=== PATIENT | female | born 1930 | race Hispanic/Latino ===

== ENCOUNTER 2019-02-19 03:41 | Inpatient (IN) | payer OTHER ==
--- OUTSIDE RECORDS SUMMARY | 2019-02-19 03:42 | XMS REPORT | Clinical Summary ---
:1930 Author Organization [facility] Address [address] [place] [address] Care Team Providers Name Role Phone Alvaro Sullivan MD Primary Care Provider Allergies No Known Allergies Medications Medication Sig Dispensed Refills Start Date End Date Status oseltamivir (TAMIFLU) 75 Take 75 mg by 0 Active MG capsule mouth 2 (two) times daily. azithromycin (ZITHROMAX) Take by mouth 0 Active 250 MG tablet daily. Take by mouth as directed. ALBUTEROL INHL Inhale by mouth 0 Active via inhaler. isosorbide mononitrate Take 30 mg by 0 Active (IMDUR) 30 MG 24 hr mouth daily. tablet ALPRAZolam (XANAX) 0.25 Take 0.25 mg by 0 Active MG tablet mouth every night as needed. rosuvastatin (CRESTOR) Take 10 mg by 0 Active 10 MG tablet mouth daily. irbesartan (AVAPRO) 300 Take 300 mg by 0 Active MG tablet mouth nightly. methocarbamol (ROBAXIN) Take 750 mg by 0 Active 750 MG tablet mouth 4 (four) times daily. nabumetone (RELAFEN) 500 Take 500 mg by 0 Active MG tablet mouth 2 (two) times daily. codeine-guaifenesin Take 5 mLs by 0 Active (GUAIFENESIN AC) 10-100 mouth 3 (three) mg/5 mL liquid times daily as needed. Active Problems Not on file Social History Tobacco Use Types Packs/Day Years Used Date Never Smoker Alcohol Use Drinks/Week oz/Week Comments No Sex Assigned at Date Recorded Not on file Job Start Date Occupation Industry Not on file Not on file Not on file Travel History Travel Start Travel End No recent travel history available. Last Filed Vital Signs Not on file Plan of Treatment Not on file Results Not on fileafter 02/18/2018 Insurance Payer Benefit Plan / Group Subscriber ID Type Phone Address MEDICARE MEDICARE A B xxxxxxxxxx Medicare MEDICAID MEDICAID [facility] xxxxxxxxx Medicaid
--- OUTSIDE RECORDS SUMMARY | 2019-02-19 03:42 | XMS REPORT | Clinical Summary ---
:1930 Author Organization [facility] Address [address] [place] [address] Care Team Providers Name Role Phone Asked, No Pcp Primary Care Provider Unavailable Allergies No Known Allergies Medications Medication Sig Dispensed Refills Start Date End Date Status ALBUTEROL SULFATE INHL Inhale. 0 Active ALPRAZolam (XANAX) Take 0.25 mg by 0 Active 0.25 MG tablet mouth. ondansetron ODT Take 1 tablet (4 15 tablet 0 12/31/2015 Active (ZOFRAN ODT) 4 MG mg total) by mouth disintegrating tablet every 8 (eight) hours as needed for nausea or vomiting for up to 15 doses. gabapentin (NEURONTIN) Take 300 mg by 0 Active 300 mg capsule mouth 3 (three) times a day. methocarbamol Take 750 mg by 0 Active (ROBAXIN) 750 MG mouth 2 (two) tablet times a day as needed for muscle spasms. amLODIPine (NORVASC) 5 Take 5 mg by mouth 0 Active mg tablet daily. aspirin (ECOTRIN) 81 Take 81 mg by 0 Active MG enteric coated mouth daily. tablet traMADol (ULTRAM) 50 Take 50 mg by 0 Active mg tablet mouth daily as needed for moderate pain. clopidogrel (PLAVIX) Take 75 mg by 0 Active 75 mg tablet mouth daily. pantoprazole Take 40 mg by 0 Active (PROTONIX) 40 MG EC mouth daily. tablet fluticasone-vilanterol Inhale 1 0 Active (BREO ELLIPTA) 100-25 inhalations once mcg/dose blister with daily. device powder for inhalation linaclotide (LINZESS) Take 290 mcg by 0 Active 290 mcg capsule mouth daily before breakfast. irbesartan (AVAPRO) Take 300 mg by 0 Active 300 MG tablet mouth nightly. isosorbide mononitrate Take 30 mg by 0 Active (IMDUR) 30 MG 24 hr mouth daily. tablet rosuvastatin (CRESTOR) Take 10 mg by 0 Active 10 MG tablet mouth daily. diclofenac (FLECTOR) Place 1 patch on 60 patch 0 08/07/2017 Active 1.3 % patch 12 hour the skin every 12 (twelve) hours as needed (muscular/joint pain). 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 Last Filed Vital Signs Not on file Plan of Treatment Health Maintenance Due Date Last Done Comments SHINGLES VACCINES (#1) 12/01/1981 65+ PNEUMOCOCCAL VACCINE (1 of 2 - PCV13) 12/01/1996 INFLUENZA VACCINE 01/17/2019 Results Not on fileafter 02/18/2018 Insurance Payer Benefit Plan / Subscriber ID Effective Dates Phone Address Type Group MEDICARE MEDICARE PART A xxxxxxxxxx 1996-Present [place], [place] Medicare AND B MEDICAID MEDICAID xxxxxxxxx 2011-Present Medicaid Advance Directives For more information, please contact: [phone] Type Date Recorded Patient Legal Summer Intern Explanation Advance Directives, Living Will 08/06/2017 7:03 AM and Medical Power of [place]ner
--- OUTSIDE RECORDS SUMMARY | 2019-02-19 03:43 | XMS REPORT ---
:1930 Author Organization [facility] Address [address] [place] [address] Dr. Burk [address] [place] [id number] Care Team Providers Name Role Phone IRVING HICKEY Unavailable Unavailable Problems This patient has no known problems. Allergies, Adverse Reactions, Alerts This patient has no known allergies or adverse reactions. Medications This patient has no known medications. Results Test Description Test Time Test Comments Text Results Atomic Results Result Comments POCT-CREATININE 2016-12-16 15:32:00 Test Item Value Reference Range Comments POC-CREATININE (BEAKER) (test 1.0 mg/dL 0.6-1.3 TESTED AT [facility] 2457 [id number]) [facility] [address] POC-EGFR (BEAKER) (test 53 mL/min/1.73M2 [id number])
[2019-02-19] MEDS ORDERED: ALBUTEROL 2.5 MG/3 ML NEB SOL ONE ×2 (03:59→06:06)
[2019-02-19] MEDS ORDERED: IPRATROPIUM BROM 0.5MG/2.5ML ONE ×2 (03:59→06:06)
[2019-02-19] MEDS ORDERED: METHYLPREDNISOLONE 125 MG INJ ONE (04:03)
[2019-02-19 04:19] LABS: Absolute Lymphocytes (CBC) 1.4 K/uL (0.7-4.9); Basophils % 0.6 % (0-1.3); Hematocrit 36.5 % (36.0-45.0); Lymphocytes % 15.4 % (15.3-44.8); MPV 8.3 fL (7.6-11.3); RBC Red Blood Cell Count 4.23 M/uL (3.86-4.86)
[2019-02-19 04:27] LABS: Protime INR 0.89
[2019-02-19 04:33] LABS: Arterial Blood Carboxyhemoglob 0.9 % (0-1.5); Blood Gas Oxyhemoglobin 92.6 % (94-97); Blood O2 Saturation 94.3 % (92-98.5)
[2019-02-19 04:40] LABS: ALT/SGPT 22 U/L (12-78); AST/SGOT 18 U/L (15-37); Albumin 3.9 g/dL (3.4-5.0); Alkaline Phosphatase 90 U/L (45-117); BUN Blood Urea Nitrogen 30 mg/dL (7-18); Bicarbonate 30 mmol/L (21-32); Bilirubin Direct 0.2 mg/dL (0-0.2); Bilirubin Total 0.5 mg/dL (0.2-1.0); Glucose Level 115 mg/dL (74-106); Magnesium 2.2 mg/dL (1.8-2.4); NT PRO-BNP 127 pg/mL (<450); Potassium 3.7 mmol/L (3.5-5.1); Protein, Total 7.5 g/dL (6.4-8.2); Sodium Level 132 mmol/L (136-145); Troponin (Emerg Dept Use Only) < 0.02 ng/mL (0.0-0.045)
--- NOTE | 2019-02-19 06:46 | EDPHYS ---
Physician Documentation [facility] Name: Amy Francis Age: 88 yrs Sex: Female : 1930 Arrival Date: 02/19/2019 Time: 03:42 Bed 4 Private MD: ED Physician Rene Campos HPI: 02/19 05:52 This 88 yrs old Female presents to ER via Wheelchair with complaints of pkl Breathing Difficulty. 05:52 The patient has shortness of breath at rest. Onset: The symptoms/episode began/occurred pkl just prior to arrival. H/O asthma. Historical: - Allergies: 07:13 No Known Allergies; jl7 - Home Meds: 04:17 irbesartan 300 mg oral tab 1 tab once daily [Active]; Plavix 75 mg Oral tab 1 tab once ea daily [Active]; amlodipine 2.5 mg tab 1 tab once daily [Active]; Breo Ellipta 100-25 mcg/dose inhalation dsdv 1 puff once daily [Active]; rosuvastatin 10 mg oral tab 1 tab once daily [Active]; tramadol 50 mg Oral tab as needed [Active]; hydrochlorothiazide 12.5 mg Oral cap 1 cap once daily [Active]; pantoprazole 40 mg oral TbEC 1 tab once daily [Active]; methocarbamol 750 mg Oral tab 1 tab 3 times per day [Active]; gabapentin 300 mg oral cap 1 cap 3 times per day [Active]; ProAir HFA 90 mcg/actuation inhalation HFAA [Active]; alprazolam 0.25 mg Oral tab as needed [Active]; - PMHx: 07:13 Hypertension; Hyperlipidemia; GERD; Chronic pain; jl7 07:14 Asthma; jl7 - PSHx: 04:17 Heart stents; Knee surgery; Cholecystectomy; Hernia repair; ; cataract; jen ea total knee replacement; - Immunization history:: Adult Immunizations up to date. - Social history:: Smoking status: Patient/guardian denies using tobacco. - Ebola Screening: : No symptoms or risks identified at this time. ROS: 05:52 Eyes: Negative for injury, pain, redness, and discharge, ENT: Negative for injury, pkl pain, and discharge, Neck: Negative for injury, pain, and swelling, Cardiovascular: Negative for chest pain, palpitations, and edema. 05:52 Respiratory: Positive for shortness of breath, wheezing. 05:52 Abdomen/GI: Negative for abdominal pain, nausea, vomiting, and diarrhea. 05:52 Back: Negative for acute changes. 05:52 : Negative for urinary symptoms. 05:52 MS/extremity: Negative for acute changes. 05:52 Skin: Negative for rash. 05:52 Neuro: Negative for altered mental status. Exam: 05:52 Head/Face: Normocephalic, atraumatic. Eyes: Pupils equal round and reactive to light, pkl extra-ocular motions intact. Lids and lashes normal. Conjunctiva and sclera are non-icteric and not injected. Cornea within normal limits. Periorbital areas with no swelling, redness, or edema. ENT: Nares patent. No nasal discharge, no septal abnormalities noted. Tympanic membranes are normal and external auditory canals are clear. Oropharynx with no redness, swelling, or masses, exudates, or evidence of obstruction, uvula midline. Mucous membranes moist. Neck: Trachea midline, no thyromegaly or masses palpated, and no cervical lymphadenopathy. Supple, full range of motion without nuchal rigidity, or vertebral point tenderness. No Meningismus. Chest/axilla: Normal chest wall appearance and motion. Nontender with no deformity. No lesions are appreciated. Cardiovascular: Regular rate and rhythm with a normal S1 and S2. No gallops, murmurs, or rubs. Normal PMI, no JVD. No pulse deficits. 05:52 Respiratory: moderate respiratory distress is noted, Respirations: labored breathing, Breath sounds: bronchial sounds, that are moderate, are scattered, rhonchi, that are moderate, are scattered. 05:52 Abdomen/GI: Bowel sounds: normal, Palpation: abdomen is soft and non-tender, in all quadrants. 05:52 Back: Exam negative for acute changes. 05:52 : Exam negative for acute changes. 05:52 Musculoskeletal/extremity: Exam is negative for acute changes. 05:52 Skin: Exam negative for rash. 05:52 Neuro: Orientation: is normal, Mentation: is normal, Cranial nerves: grossly normal, Motor: is normal. Vital Signs: 04:10 BP 182 / 77; Pulse 88; Resp 28; Temp 97.6; Pulse Ox 92% on R/A; Weight 67.13 kg; Height ea 4 ft. 8 in. (142.24 cm); 05:45 BP 158 / 64; Pulse 103; Resp 20; Pulse Ox 94% ; ea 06:49 BP 166 / 55; Pulse 118; Resp 18; Pulse Ox 95% ; ea 07:19 BP 177 / 68; Pulse 113; Resp 23 S; Pulse Ox 94% on R/A; jl7 04:10 Body Mass Index 33.18 (67.13 kg, 142.24 cm) ea MDM: 03:57 Patient medically screened. pkl 06:42 Data reviewed: vital signs, nurses notes, lab test result(s), EKG, radiologic studies, pkl plain films. ED course: Talked to Dr. Sullivan. To admit patient. 02/19 04:06 Order name: Basic Metabolic Panel; Complete Time: 06:26 ea 02/19 04:06 Order name: CBC with Diff; Complete Time: 06:26 ea 02/19 04:06 Order name: LFT's; Complete Time: 06:26 ea 02/19 04:06 Order name: Magnesium; Complete Time: 06:26 ea 02/19 04:06 Order name: NT PRO-BNP; Complete Time: 06:26 ea 02/19 04:06 Order name: PT-INR; Complete Time: 06:26 ea 02/19 04:06 Order name: Troponin (emerg Dept Use Only); Complete Time: 06:26 ea 02/19 04:06 Order name: XRAY Chest (1 view) ea 02/19 04:06 Order name: Blood Culture Adult (2) ea 02/19 04:06 Order name: ABG; Complete Time: 06:26 ea 02/19 06:54 Order name: Basic Metabolic Panel EDMS 02/19 06:54 Order name: Basic Metabolic Panel EDMS 02/19 06:54 Order name: CBC with Automated Diff EDMS 02/19 06:54 Order name: CBC with Automated Diff EDMS 02/19 04:06 Order name: EKG; Complete Time: 04:09 ea 02/19 04:06 Order name: Cardiac monitoring; Complete Time: 04:08 ea 02/19 04:06 Order name: EKG - Nurse/Tech; Complete Time: 05:51 ea 02/19 04:06 Order name: IV Saline Lock; Complete Time: 04:08 ea 02/19 04:06 Order name: Labs collected and sent; Complete Time: 04:08 02/19 04:06 Order name: O2 Per Protocol; Complete Time: 04:08 02/19 04:06 Order name: O2 Sat Monitoring; Complete Time: 04:08 02/19 06:54 Order name: Regular EDMS Administered Medications: 04:07 Drug: Albuterol - atroVENT (3:1) (2.5 mg - 0.5 mg) 3 ml Route: Nebulizer; bb 05:30 Follow up: Response: No adverse reaction; Marked relief of symptoms ea 04:10 Drug: SOLU-Medrol 125 mg Route: IVP; Site: left antecubital; lp1 06:18 Follow up: Response: No adverse reaction; Marked relief of symptoms ea 06:17 Drug: Albuterol - atroVENT (3:1) (2.5 mg - 0.5 mg) 3 ml Route: Nebulizer; ea 07:17 Follow up: Response: No adverse reaction; No change in condition jl7 Disposition: 02/19/19 06:44 Hospitalization ordered by Alvaro Sullivan for Inpatient Admission. Preliminary diagnosis is Acute exacerbation asthma. - Bed requested for Telemetry/MedSurg (Inpatient). - Status is Inpatient Admission. ss - Condition is Stable. - Problem is new. - Symptoms have improved. UTI on Admission? No Signatures: Dispatcher [employer] EDMS Rene Campos MD MD pkl Harika Gamez RN RN bb Martinez, Eric em1 Sylvie Wills RN RN ss Diana Patel RN RN lp1 Fariba Monroy RN RN jl7 Mary Drummond RN KALANI ea Corrections: (The following items were deleted from the chart) 08:10 06:44 Hospitalization Ordered by Alvaro Sullivan MD for Inpatient Admission. Preliminary em1 diagnosis is Acute exacerbation asthma. Bed requested for Telemetry/MedSurg (Inpatient). Status is Inpatient Admission. Condition is Stable. Problem is new. Symptoms have improved. UTI on Admission? No. pkl 09:30 08:10 02/19/2019 06:44 Hospitalization Ordered by Alvaro Sullivan MD for Inpatient ss Admission. Preliminary diagnosis is Acute exacerbation asthma. Bed requested for Telemetry/MedSurg (Inpatient). Status is Inpatient Admission. Condition is Stable. Problem is new. Symptoms have improved. UTI on Admission? No. em1
--- NOTE | 2019-02-19 06:46 | ER ---
Nurse's Notes [facility] Name: Amy Francis Age: 88 yrs Sex: Female : 1930 Arrival Date: 02/19/2019 Time: 03:42 Bed 4 Private MD: Diagnosis: Acute exacerbation asthma Presentation: 02/19 04:07 Presenting complaint: Child states: Pt's daughter reports she woke up having difficulty ea breathing, daughter reports she usually takes albuterol but was unable to given her a treatment because the nebulizing machine broke. Reports she has a history of asthma. Transition of care: patient was not received from another setting of care. Onset of symptoms was February 19, 2019. Risk Assessment: Do you want to hurt yourself or someone else? Patient reports no desire to harm self or others. Initial Sepsis Screen: Does the patient meet any 2 criteria? RR > 20 per min. No. Patient's initial sepsis screen is negative. Does the patient have a suspected source of infection? No. Patient's initial sepsis screen is negative. Care prior to arrival: None. 04:07 Method Of Arrival: Wheelchair ea 04:07 Acuity: WENDY 3 ea Historical: - Allergies: 07:13 No Known Allergies; jl7 - Home Meds: 04:17 irbesartan 300 mg oral tab 1 tab once daily [Active]; Plavix 75 mg Oral tab 1 tab once ea daily [Active]; amlodipine 2.5 mg tab 1 tab once daily [Active]; Breo Ellipta 100-25 mcg/dose inhalation dsdv 1 puff once daily [Active]; rosuvastatin 10 mg oral tab 1 tab once daily [Active]; tramadol 50 mg Oral tab as needed [Active]; hydrochlorothiazide 12.5 mg Oral cap 1 cap once daily [Active]; pantoprazole 40 mg oral TbEC 1 tab once daily [Active]; methocarbamol 750 mg Oral tab 1 tab 3 times per day [Active]; gabapentin 300 mg oral cap 1 cap 3 times per day [Active]; ProAir HFA 90 mcg/actuation inhalation HFAA [Active]; alprazolam 0.25 mg Oral tab as needed [Active]; - PMHx: 07:13 Hypertension; Hyperlipidemia; GERD; Chronic pain; jl7 07:14 Asthma; jl7 - PSHx: 04:17 Heart stents; Knee surgery; Cholecystectomy; Hernia repair; ; cataract; jen ea total knee replacement; - Immunization history:: Adult Immunizations up to date. - Social history:: Smoking status: Patient/guardian denies using tobacco. - Ebola Screening: : No symptoms or risks identified at this time. Screenin:17 Abuse screen: Denies threats or abuse. Nutritional screening: No deficits noted. ea Tuberculosis screening: No symptoms or risk factors identified. Fall Risk IV access (20 points). Assessment: 04:18 General: Appears uncomfortable, Behavior is appropriate for age. Pain: Denies pain. ea Neuro: Level of Consciousness is awake, alert, obeys commands, Oriented to person, place, time, situation. Cardiovascular: Patient's skin is warm and dry. Respiratory: Airway is patent Respiratory effort is labored, Respiratory pattern is symmetrical, tachypnea Breath sounds with wheezes bilaterally. Derm: Skin is dry, Skin is normal, Skin temperature is warm. 05:45 Reassessment: Patient and/or family updated on plan of care and expected duration. Pain ea level reassessed. Patient is alert, oriented x 3, equal unlabored respirations, skin warm/dry/pink. Patient states feeling better. 07:00 Reassessment: Dr. Sullivan at bedside. jl7 07:15 Reassessment:. General: Appears uncomfortable, Behavior is cooperative, appropriate for jl7 age, anxious. Pain: Denies pain. Neuro: Level of Consciousness is awake, alert, obeys commands, Oriented to person, place, time, situation. Cardiovascular: Rhythm is sinus tachycardia. Respiratory: Airway is patent Respiratory effort is even, labored, Respiratory pattern is symmetrical, tachypnea Breath sounds with wheezes bilaterally. Derm: Skin is pink, warm \T\ dry. Vital Signs: 04:10 BP 182 / 77; Pulse 88; Resp 28; Temp 97.6; Pulse Ox 92% on R/A; Weight 67.13 kg; Height ea 4 ft. 8 in. (142.24 cm); 05:45 BP 158 / 64; Pulse 103; Resp 20; Pulse Ox 94% ; ea 06:49 BP 166 / 55; Pulse 118; Resp 18; Pulse Ox 95% ; ea 07:19 BP 177 / 68; Pulse 113; Resp 23 S; Pulse Ox 94% on R/A; jl7 04:10 Body Mass Index 33.18 (67.13 kg, 142.24 cm) ea ED Course: 03:42 Patient arrived in ED. ds1 03:57 Rene Campos MD is Attending Physician. pkl 04:05 Mary Drummond, KALANI is Primary Nurse. ea 04:05 Inserted saline lock: 20 gauge in left antecubital area, using aseptic technique. Blood lp1 collected. 04:05 First set of blood cultures drawn by me. lp1 04:10 Triage completed. ea 04:18 Patient has correct armband on for positive identification. Placed in gown. Bed in low ea position. Call light in reach. Side rails up X2. 04:19 Arm band placed on right wrist. Patient placed in an exam room, on a stretcher, on ea pulse oximetry. 05:26 XRAY Chest (1 view) In Process Unspecified. EDMS 06:44 Alvaro Sullivan MD is Hospitalizing Provider. pkl Administered Medications: 04:07 Drug: Albuterol - atroVENT (3:1) (2.5 mg - 0.5 mg) 3 ml Route: Nebulizer; bb 05:30 Follow up: Response: No adverse reaction; Marked relief of symptoms ea 04:10 Drug: SOLU-Medrol 125 mg Route: IVP; Site: left antecubital; lp1 06:18 Follow up: Response: No adverse reaction; Marked relief of symptoms ea 06:17 Drug: Albuterol - atroVENT (3:1) (2.5 mg - 0.5 mg) 3 ml Route: Nebulizer; ea 07:17 Follow up: Response: No adverse reaction; No change in condition jl7 Outcome: 06:44 Decision to Hospitalize by Provider. pkl 09:30 Patient left the ED. ss Signatures: Dispatcher [employer] EDMS Rene Campos MD MD pkl Radha Asif ds1 Harika Gamez RN RN bb Sylvie Wills RN RN Diana Patel RN RN lp1 Fariba Monroy RN RN jl7 Mary Drummond RN RN ea
[2019-02-19] MEDS ORDERED: NA CHLORIDE 0.9% 1,000 ML IV SCH (07:00)
--- NOTE | 2019-02-19 08:29 | RAD REPORT ---
EXAM DESCRIPTION: Roel Single View02/19/2019 5:33 am CLINICAL HISTORY: Shortness of breath COMPARISON: 2011 FINDINGS: The lungs appear clear of acute infiltrate. The heart is mildly enlarged IMPRESSION: No acute abnormalities displayed
[2019-02-19] MEDS: CEFTRIAXONE/SWI 1gm 1 GM/10 ML SYR IV SCH ×2 (09:00→21:00)
[2019-02-19] MEDS: ALBUTEROL 2.5 MG/3 ML NEB SOL NEB SCH ×5 (09:00→23:00)
[2019-02-19] MEDS: NA CHLORIDE 0.9% 1,000 ML IV SCH ×2 (09:00→10:10)
[2019-02-19] MEDS: IPRATROPIUM BROM 0.5MG/2.5ML NEB SCH ×5 (09:00→23:00)
[2019-02-19 10:06] VITALS: BMI 33.1
[2019-02-19] MEDS: ENOXAPARIN 30 MG/0.3 ML SQ SCH (10:10)
[2019-02-19] MEDS: ACETAMINOPHEN 500 MG TAB PO PRN (10:34)
[2019-02-19] MEDS: DULERA 200/5 (MOMETASONE/FORMOTEROL) INHALER IH SCH ×2 (12:31→21:09)
[2019-02-19] MEDS: METHYLPREDNISOLONE 40 MG INJ IV SCH ×2 (12:31→17:19)
--- NOTE | 2019-02-19 17:36 | EKG ---
Test Date: 2019-02-19 Test Time: 04:28:35 Matlab Developer: LEONARD MEASUREMENT RESULTS: Intervals: Rate: 97 TX: 166 QRSD: 74 QT: 342 QTc: 434 [place]: P: 65 TX: 166 QRS: -26 T: 91 INTERPRETIVE STATEMENTS: Normal sinus rhythm Left ventricular hypertrophy with repolarization abnormality Abnormal ECG Compared to ECG 08/24/2008 13:29:02 Early repolarization now present T-wave abnormality no longer present Electronically Signed On 02-19-19 17:34:03 CDT by Stewart Farmer
[2019-02-19] MEDS ORDERED: ALPRAZOLAM 0.25 MG PO PRN ×2 (19:29)
[2019-02-19] MEDS ORDERED: METHOCARBAMOL 750 MG PO PRN (19:29)
[2019-02-19] MEDS: TRAMADOL HCL 50 MG TAB PO PRN (21:13)
[2019-02-20] MEDS: METHYLPREDNISOLONE 40 MG INJ IV SCH ×5 (00:16→23:51)
--- NOTE | 2019-02-20 02:25 | HP ---
Date of Admission: 02/19/2019 Chief Complaint: Shortness of breath. History Of Present Illness: This is an 88-year-old pleasant female patient living at home with her f junior, started to have some sniffles and clear runny nose yesterday and family started her on some ov [id number] medication like . Around 3-4 o'clock this morning, she started to have a lo t of shortness of breath and wheezing. Patient has old nebulizer machine at home, which she has not used in last 2 years and when daughter tried to use it early this morning, machine was not working. With her extreme difficulty breathing, she was brought into emergency room. When she came into ER, s he was in respiratory distress. ER physician evaluated, treated her with nebulizer treatment, IV jerica roid, and I was contacted this morning requesting admission to the hospital. I saw her in the emerge ncy room this morning. She was lying in bed. Her family was with her at bedside. Daughter reported that as of this morning, patient started to cough up a little bit yellowish colored mucus. No fever . No chills. Allergies: NO KNOWN ALLERGIES. Medications: List reviewed. Review of Systems: Respiratory: As mentioned above. All other systems reviewed and negative. Past Medical History: Hypertension, moderate persistent asthma, impaired fasting glucose, hyperlipid emia, osteoarthritis at multiple sites, generalized anxiety disorder, insomnia, osteoporosis, chronic headache, and coronary artery disease. Past Surgical History: Coronary artery angioplasty with stent placement, , and knee replace ment surgery. Family History: Significant for diabetes, asthma, prostate cancer, osteoarthritis. Social History: Negative for smoking and alcohol use. Physical Examination: Vital Signs: When she first came into emergency room, blood pressure 182/77, pulse 88, respiratory r ate 28, temperature 97.6, oxygen saturation 92%. Weight 67.13 kg. Height 4 feet 8 inches. General: Awake, alert, oriented, not in distress. HEENT: Head atraumatic, normocephalic. Conjunctivae nonerythematous. Sclerae white. Mouth, no thr ush or edema noted. Ears/Nose, no mass, lesion, discharge noted. Neck: Supple. No JVD, lymph nodes, bruit, thyromegaly noted. Lungs: Bilateral good equal air entry. Not in any respiratory distress few wheezing note d in all the lung simon and some scattered rales also noted mostly in lower lung field. Heart: Normal heart sounds, no murmur or gallop. Abdomen: Soft, bowel sounds normal. No guarding, rigidity, tenderness, mass, hepatosplenomegaly, dis tention, or bruit noted. Extremities: No leg edema. No calf tenderness. Skin: No rash, ulcer, cellulitis. Lymphatics: No lymph node enlargement in neck, supraclavicular, infraclavicular region. Neuro: No focal neurological deficit. Chest: Unremarkable. External Genitalia: Deferred. Rectal: Deferred. Laboratory Data: Chest x-ray was reported as no acute cardiopulmonary changes. White count 8.9, hem oglobin 12.9, platelets 231. INR 0.89. Blood gas; pH 7.41, pCO2 43, pO2 73, oxygen saturation 94% o n room air. Sodium 132, potassium 3.7, chloride , bicarb 30, BUN 30, creatinine 1.23, gluc ose 115. Liver function tests unremarkable. Troponin less than 0.02. ProBNP 127. Impression: 1.Moderate persistent asthma, with acute exacerbation. 2.Acute bronchitis. 3.Hyponatremia. 4.Hypertension. 5.Impaired fasting glucose. 6.Hyperlipidemia. 7.Osteoarthritis, multiple sites. 8.Primary insomnia. 9.Coronary artery disease. 10.Chronic headache. Plan: Admit patient to hospital for further evaluation and management of this problem. Patient is a ppropriate for inpatient and is expected to spend 2 midnights in the hospital. We will continue home medications per order. Oxygen nebulizer treatment, IV steroid and IV antibiotics will be given per order, and antibiotic will be ceftriaxone. I have ordered sputum Gram stain and sputum culture. Con sult Physical Therapy. Fall precaution was ordered. DVT prophylaxis using Lovenox will be started. I have asked patient's family member to bulk picker prescription for nebulizer machine and supply from t he office today, so patient will have nebulizer machine and supply available upon discharge from the hospital. I will see her tomorrow for followup. NERIS/MODL Voice ID: [id number]
[2019-02-20] MEDS: ALBUTEROL 2.5 MG/3 ML NEB SOL NEB SCH ×5 (03:10→20:00)
[2019-02-20] MEDS: IPRATROPIUM BROM 0.5MG/2.5ML NEB SCH ×5 (03:10→20:00)
[2019-02-20] MEDS: NA CHLORIDE 0.9% 1,000 ML IV SCH ×2 (05:00→05:58)
[2019-02-20 05:58] LABS: Absolute Lymphocytes (CBC) 0.6 K/uL (0.7-4.9); Basophils % 0.1 % (0-1.3); Hematocrit 34.3 % (36.0-45.0); Lymphocytes % 4.1 % (15.3-44.8); MPV 8.3 fL (7.6-11.3); RBC Red Blood Cell Count 3.93 M/uL (3.86-4.86)
[2019-02-20 06:16] LABS: Potassium 3.7 mmol/L (3.5-5.1)
[2019-02-20] MEDS: ACETAMINOPHEN 500 MG TAB PO PRN (07:52)
[2019-02-20] MEDS: HYDROCHLOROTHIAZIDE 12.5 MG PO SCH (09:00)
[2019-02-20] MEDS: ROSUVASTATIN 10 MG PO SCH (09:00)
[2019-02-20] MEDS: AMLODIPINE BESYLATE 2.5 MG PO SCH (09:00)
[2019-02-20] MEDS: CEFTRIAXONE/SWI 1gm 1 GM/10 ML SYR IV SCH ×2 (09:00→20:39)
[2019-02-20] MEDS: ISOSORBIDE MONONITRATE 30 MG PO SCH (09:00)
[2019-02-20] MEDS: Clopidogrel Bisulfate (Plavix) 75 MG TABLETS PO SCH (09:00)
[2019-02-20] MEDS: IRBESARTAN 300 MG PO SCH (09:00)
[2019-02-20] MEDS: DULERA 200/5 (MOMETASONE/FORMOTEROL) INHALER IH SCH ×2 (09:06→20:39)
[2019-02-20] MEDS: ENOXAPARIN 30 MG/0.3 ML SQ SCH (09:06)
[2019-02-20] MEDS: TRAMADOL HCL 50 MG TAB PO PRN ×3 (09:17→20:47)
[2019-02-20 10:01] LABS: Blood Morphology Comment NOT SEEN (NOT SEEN); Platelet Estimate ADEQ; Urine White Blood Cell Casts OK
--- NOTE | 2019-02-20 14:25 | RAD REPORT ---
EXAM DESCRIPTION: RAD - Barium Swallow Modified - 02/20/2019 2:11 pm CLINICAL HISTORY: Dysphagia COMPARISON: None. TECHNIQUE: The patient was given liquid, semi-solid and solid forms of barium. Lateral view fluorosc opic imaging was performed in conjunction with speech pathology service. FINDINGS: Cineloop acquisitions: 17 Fluoro time: 2 minutes 25 seconds Laryngeal penetration: with thin and nectar, cleared Pharyngeal Residue: Vallecular - mild to moderate with all consistences. cleared on subsequent swallo ws. Pyriform - moderate to severe with thin liquid, Cleared on subsequent swallow. Posterior wall - mild with all consistences. decreased pharyngeal space just above UES causing residue to spill over / penetrate during swallow; b ut cleared. Barium tablet did not clear into stomach. Moderate esophageal retention / retropulsion. IMPRESSION: Modified barium swallow as summarized above and fully detailed on speech pathology louie hobbs
--- NOTE | 2019-02-20 22:43 | PN ---
Date of Progress Note: 02/20/2019 Subjective: Patient was seen this morning for followup. She was lying in bed. Her daughter was pre sent with her at bedside. She still has wheezing and shortness of breath, but she feels better today compared to yesterday. Has cough and sometimes she coughs up some mucus. No nausea. No vomiting. Objective: Vital Signs: Reviewed. HEENT: Unremarkable. Lungs: Bilateral scattered wheezing noted in all the lung simon. It is a little better today than yesterday. No rales. Heart: Sounds normal. Abdomen: Soft. Bowel sounds normal. No guarding, rigidity, tenderness, distention. Extremities: No leg edema. Laboratory Data: White count has gone up today to 14.3, yesterday it was 8.9; hemoglobin 12; platele ts 210. Sodium 133, potassium 3.7, chloride 98, bicarb 26, BUN 31, creatinine 1.17, glucose 168. Impression: 1.Moderate persistent asthma, with acute exacerbation. 2.Acute bronchitis. 3.Impaired fasting glucose. 4.Hypertension. 5.Anxiety. 6.Insomnia. 7.Headache, chronic. Plan: We will continue current oxygen, nebulizer treatment, IV steroid, IV antibiotics. Physical zacharypy to continue to work with patient and ambulate patient, and I will see her tomorrow for followup. Chest x-ray was negative for any pneumonia. NERIS/MODL Voice ID: [id number] Report ID: [id number]
[2019-02-21] MEDS: IPRATROPIUM BROM 0.5MG/2.5ML NEB SCH ×7 (04:00→23:20)
[2019-02-21] MEDS: ALBUTEROL 2.5 MG/3 ML NEB SOL NEB SCH ×7 (04:00→23:20)
[2019-02-21] MEDS: NA CHLORIDE 0.9% 1,000 ML IV SCH (05:49)
[2019-02-21] MEDS: METHYLPREDNISOLONE 40 MG INJ IV SCH ×4 (05:49→23:35)
[2019-02-21] MEDS ORDERED: GLUCAGON 1 MG/VIAL IM PRN (07:46)
[2019-02-21] MEDS ORDERED: D50W 25 GM/50 ML SYRINGE IV PRN (07:46)
[2019-02-21 08:37] LABS: Absolute Lymphocytes (CBC) 0.4 K/uL (0.7-4.9); Basophils % 0.1 % (0-1.3); Hematocrit 35.5 % (36.0-45.0); Lymphocytes % 2.8 % (15.3-44.8); MPV 8.6 fL (7.6-11.3); RBC Red Blood Cell Count 4.07 M/uL (3.86-4.86)
[2019-02-21] MEDS ORDERED: TRAMADOL 50 MG PO PRN (08:38)
[2019-02-21 08:46] LABS: Potassium 3.4 mmol/L (3.5-5.1)
[2019-02-21] MEDS: HYDROCHLOROTHIAZIDE 12.5 MG PO SCH (09:00)
[2019-02-21] MEDS: IRBESARTAN 300 MG PO SCH (09:00)
[2019-02-21] MEDS: Clopidogrel Bisulfate (Plavix) 75 MG TABLETS PO SCH (09:00)
[2019-02-21] MEDS: ISOSORBIDE MONONITRATE 30 MG PO SCH (09:00)
[2019-02-21] MEDS: ROSUVASTATIN 10 MG PO SCH (09:00)
[2019-02-21] MEDS: AMLODIPINE BESYLATE 2.5 MG PO SCH (09:00)
[2019-02-21] MEDS: DULERA 200/5 (MOMETASONE/FORMOTEROL) INHALER IH SCH ×2 (09:28→20:45)
[2019-02-21] MEDS: ENOXAPARIN 30 MG/0.3 ML SQ SCH (09:28)
[2019-02-21] MEDS: CEFTRIAXONE/SWI 1gm 1 GM/10 ML SYR IV SCH ×2 (09:29→20:42)
[2019-02-21] MEDS: INSULIN -REGULAR HUMAN 50 UNIT/0.5 ML ML SQ SCH ×3 (11:30→20:45)
[2019-02-21] MEDS ORDERED: POTASSIUM CL SA 10 MEQ TAB PO ONE (19:47)
[2019-02-21] MEDS ORDERED: PANTOPRAZOLE 40MG TABLET PO SCH (21:00)
--- NOTE | 2019-02-22 00:35 | PN ---
Date of Progress Note: 02/21/2019 Subjective: Patient was seen this morning for followup. Patient was lying in bed. Her daughter was present with her at bedside. Daughter reported that yesterday, patient ambulated and her shortness of breath, coughing and wheezing are improving. Yesterday, her day was better than day before. Objective: Vital Signs: Reviewed. HEENT: Unremarkable. Lungs: Bilateral good equal air entry. Presence of scattered wheezing noted. No rales. Wheezing i s overall significantly better today than last 2 days. Heart: Sounds normal. Abdomen: Soft. Bowel sounds normal. No guarding, rigidity, tenderness, distention. Extremities: No leg edema. Laboratory Data: White count 13.9, hemoglobin 12.7, platelets 223. Sodium 131, potassium 3.4, chlor belkys 98, bicarb 26, BUN 24, creatinine 1.11, glucose 206. Hemoglobin A1c 6.4. Impression: 1.Moderate persistent asthma, with acute exacerbation. 2.Acute bronchitis. 3.Impaired fasting glucose. 4.Hypertension. 5.Hypokalemia. Plan: Patient's elevated blood sugar right now is due to underlying impaired fasting glucose, but I do not believe that she has diabetes at this time. Currently, IV steroid will increase her glucose l evel. Hemoglobin A1c is 6.4. So, on outpatient basis, we will have to continue to monitor this. We will continue current IV antibiotic, nebulizer treatment, oxygen, steroids. Replace potassium per o rder and I will see her tomorrow for followup. Possible discharge to go home either tomorrow or day after tomorrow depending on her condition. NERIS/MODL Voice ID: [id number] Report ID: [id number]
[2019-02-22] MEDS: ALBUTEROL 2.5 MG/3 ML NEB SOL NEB SCH ×2 (03:45→07:20)
[2019-02-22] MEDS: IPRATROPIUM BROM 0.5MG/2.5ML NEB SCH ×2 (03:45→07:20)
[2019-02-22] MEDS: METHYLPREDNISOLONE 40 MG INJ IV SCH (05:59)
[2019-02-22 06:51] LABS: Potassium 4.4 mmol/L (3.5-5.1)
[2019-02-22] MEDS ORDERED: MAGNESIUM HYDROXIDE 8% 30 ML PO ONE (08:27)
[2019-02-22 08:52] VITALS: BP 152/69; TEMP 97.4
[2019-02-22] MEDS: CEFTRIAXONE/SWI 1gm 1 GM/10 ML SYR IV SCH (09:00)
[2019-02-22] MEDS: DULERA 200/5 (MOMETASONE/FORMOTEROL) INHALER IH SCH (09:19)
[2019-02-22] MEDS: INSULIN -REGULAR HUMAN 50 UNIT/0.5 ML ML SQ SCH (09:20)
[2019-02-22] MEDS: ISOSORBIDE MONONITRATE 30 MG PO SCH (09:21)
[2019-02-22] MEDS: IRBESARTAN 300 MG PO SCH (09:22)
[2019-02-22] MEDS: HYDROCHLOROTHIAZIDE 12.5 MG PO SCH (09:22)
[2019-02-22] MEDS: Clopidogrel Bisulfate (Plavix) 75 MG TABLETS PO SCH (09:24)
[2019-02-22] MEDS: AMLODIPINE BESYLATE 2.5 MG PO SCH (09:24)
[2019-02-22] MEDS: ROSUVASTATIN 10 MG PO SCH (09:25)
[2019-02-22] MEDS: ENOXAPARIN 30 MG/0.3 ML SQ SCH (09:26)
[2019-02-22 10:47] VITALS: O2SAT 97
--- NOTE | 2019-02-23 05:43 | DS ---
Date of Discharge: 02/22/2019 Disposition: Discharged to go home. Physical Examination: HEENT: Examination unremarkable. Lungs: Bilateral good equal air entry. Not in any respiratory distress. Some wheezing present in b oth lung simon, minimum compared to before and patient's daughter says that this usually happens aft er she gets nebulizer treatment, but prior to that she did not have any wheezing. Heart: Heart sounds normal. Abdomen: Soft. Bowel sounds normal. No guarding, rigidity, tenderness, or distention. Extremities: No leg edema. Discharge Medications And Instructions: 1.Continue prior home medication. 2.Follow up at my office a week after. 3.Take cefuroxime 250 mg by mouth 2 times a day with food for 1 week. 4.Use albuterol nebulizer treatment 4 times a day as needed for shortness of breath. 5.Take prednisone 10 mg, patient to take 2 tablets by mouth 2 times a day for 2 days, then 2 tablets by mouth daily for 4 days, then 1 tablet by mouth daily for 4 days, then 1/2 tablet by mouth daily f or 4 days, then stop. Laboratory Data: Labs done during this hospitalization, white count upon admission 8.9, hemoglobin 1 2.9, platelets 231. This was on 02/19/2019. On 02/20/2019 white count went up to 14.3, hemoglobin 1 2, platelets 210. Last white count yesterday 13.9, hemoglobin 12.7, platelets 223. Last chemistry t pj sodium 131, potassium 4.4, chloride 98, bicarb 25, BUN 18, creatinine 0.85, glucose 209. Hemogl obin A1c yesterday 6.4, potassium yesterday was 3.4. Hospital Course: 88-year-old female patient admitted to the hospital after she came to the emergency room with complaints of shortness of breath. Please see dictated H and P for more information. Sia joe has moderate persistent asthma and she was admitted to the hospital with acute exacerbation of t his condition. She also has signs and symptoms of acute bronchitis. She was started on IV antibioti cs ceftriaxone, oxygen nebulizer treatment, IV steroid was started, Lovenox was given for DVT prophyl axis. Home medications were continued. Overall, her condition improved. Her blood glucose level we nt up because of IV steroids and WBC count went up also because of IV steroid. Hemoglobin A1c came b ack 6.4. All those details were discussed with the patient's family, low carb diet advised and we wi ll continue to monitor her blood work on outpatient basis. She is ambulating well, has good appetite . Has not had a bowel movement in last few days, so milk of magnesia 30 cc p.o. x1 dose was ordered this morning. Medically, she is stable for discharge. Chest x-ray was negative for pneumonia. Final Diagnoses: 1.Moderate persistent asthma, with acute exacerbation. 2.Acute bronchitis. 3.Hypokalemia. 4.Hyponatremia. 5.Hypertension. 6.Impaired fasting glucose. 7.Hyperlipidemia. 8.Osteoarthritis, multiple sites. 9.Primary insomnia. 10.Coronary artery disease. 11.Chronic headache. NERIS/MODL Voice ID: [id number] Report ID: [id number]
== END 2019-02-22 10:30 | disposition home or self-care (01) | DRG 202 ==
LOC: ER 03:41 → ERHOLD 06:46 → 2ND 08:25
PROVIDERS: ADMIT Internal Medicine; ATTEND Internal Medicine
DX: J45.41 Moderate persistent asthma with (acute) exacerbation (principal); E87.1 Hypo-osmolality and hyponatremia; E87.6 Hypokalemia; I10 Essential (primary) hypertension; E78.5 Hyperlipidemia, unspecified; M19.90 Unspecified osteoarthritis, unspecified site; F51.01 Primary insomnia; I25.10 Atherosclerotic heart disease of native coronary artery without angina pectoris; R51 Headache; R73.01 Impaired fasting glucose
CPT/HCPCS: 36415; 71045; 74230; 80048; 80076; 82805; 82962; 83036; 83735; 83880; 84484; 85025; 85610; 87040; 92611; 93005; 94640; 96374; 97116; 97161; 97530; 99285; J0696; J1650; J2920; J2930; J7030; J7606

== ENCOUNTER 2019-05-12 09:07 | Emergency (ER) | payer OTHER ==
--- OUTSIDE RECORDS SUMMARY | 2019-05-12 09:09 | XMS REPORT ---
:1930 Author Organization [facility] Address [address] [place] [address] Dr. Burk [address] [place] [id number] Care Team Providers Name Role Phone IRVING [...] (BEAKER) (test 1.0 mg/dL 0.6-1.3 TESTED AT [facility] [id number]) [facility] [id number] POC-EGFR (BEAKER) (test 53 mL/min/1.73M2 [id number])
[2019-05-12] MEDS ORDERED: LEVALBUTEROL 1.25 MG/3 ML NEB ONE (09:36)
--- NOTE | 2019-05-12 10:51 | RAD REPORT ---
EXAM DESCRIPTION: CT - CTHCSPWOC - 05/12/2019 10:44 am CLINICAL HISTORY: Fall, head and neck injury COMPARISON: None. TECHNIQUE: Axial 5 mm thick images of the head were obtained. Axial 2 mm thick images of the cervic al spine were obtained with sagittal and coronal reconstruction images generated and reviewed. All CT scans are performed using dose optimization technique as appropriate and may include automated exposure control or mA/KV adjustment according to patient size. FINDINGS: No intracranial hemorrhage, mass, edema or acute intracranial finding. No suspicion for acute infarct ion. No extra-axial fluid collections. Mastoid air cells and paranasal sinuses are clear. No globe or orbit abnormality seen. Atrophy and chronic ischemic changes are present mild to moderate for age. V entricles are in proportion to volume loss. Small lateral left frontal scalp hematoma. Cervical body height and alignment are normal. Significant disc space narrowing at C5-6 and C6-7. Dis c bulge and endplate spurring changes are present. Bony foraminal encroachment on the left at C5-6. C 4-5 and C3-4 show disc space narrowing to a lesser degree. No fracture or acute bony abnormality. Pat tral canal detail is inherently limited. No paraspinal mass or hematoma. IMPRESSION: Patient has atrophy and chronic ischemic changes present. No hemorrhage, edema or acute intracranial finding. Cervical spine degenerative changes are present as detailed. No fracture or acute finding. Central ca nal detail is inherently limited.
[2019-05-12] MEDS ORDERED: ACETAMINOPHEN 325 MG TABLET ONE (11:20)
--- NOTE | 2019-05-12 11:30 | EDPHYS ---
Physician Documentation [facility] Name: Amy Francis Age: 88 yrs Sex: Female : 1930 Arrival Date: 05/12/2019 Time: 09:11 Bed 17 Private MD: Alvaro Sullivan ED Physician Nick Aggarwal HPI: 05/12 09:35 This 88 yrs old Female presents to ER via Wheelchair with complaints of Fall jmm Injury. 09:35 Details of fall: The patient fell from an upright position. Onset: The symptoms/episode jmm began/occurred acutely, just prior to arrival. Associated injuries: The patient sustained injury to the head, neck injury. The patient has experienced similar episodes in the past. This is an 88 year old female with a history of asthma, chronic pain, GERD, HLP, HTN that presents to the ED with complaints of headache and neck pain after losing balance and falling earlier today. Daughter states this is a common occurrence. Denies other known injury or pain. . Historical: - Allergies: 09:41 No Known Allergies; iw - Home Meds: 09:41 alprazolam 0.25 mg Oral tab as needed [Active]; amlodipine 2.5 mg tab 1 tab once daily iw [Active]; Breo Ellipta 100-25 mcg/dose inhalation dsdv 1 puff once daily [Active]; gabapentin 300 mg Oral cap 1 cap 3 times per day [Active]; hydrochlorothiazide 12.5 mg Oral cap 1 cap once daily [Active]; irbesartan 300 mg Oral tab 1 tab once daily [Active]; methocarbamol 750 mg Oral tab 1 tab 3 times per day [Active]; pantoprazole 40 mg Oral TbEC 1 tab once daily [Active]; Plavix 75 mg Oral tab 1 tab once daily [Active]; ProAir HFA 90 mcg/actuation inhalation HFAA [Active]; rosuvastatin 10 mg Oral tab 1 tab once daily [Active]; tramadol 50 mg Oral tab as needed [Active]; - PMHx: 09:41 Asthma; Chronic pain; GERD; Hyperlipidemia; Hypertension; iw - PSHx: 09:41 Heart stents; Knee surgery; Cholecystectomy; Hernia repair; ; cataract; jen iw total knee replacement; - Immunization history: Last tetanus immunization:. - Social history:: Smoking status: Patient/guardian denies using tobacco. - Ebola Screening: : Patient negative for fever greater than or equal to 101.5 degrees Fahrenheit, and additional compatible Ebola Virus Disease symptoms Patient denies exposure to infectious person Patient denies travel to an Ebola-affected area in the 21 days before illness onset No symptoms or risks identified at this time. ROS: 09:35 Constitutional: Negative for fever, chills, and weight loss, Cardiovascular: Negative jmm for chest pain, palpitations, and edema, Respiratory: Negative for shortness of breath, cough, wheezing, and pleuritic chest pain, Abdomen/GI: Negative for abdominal pain, nausea, vomiting, diarrhea, and constipation. 09:35 Neck: Positive for pain at rest. 09:35 All other systems are negative. Exam: 09:35 Constitutional: This is a well developed, well nourished patient who is awake, alert, jmm and in no acute distress. Head/Face: atraumatic. Eyes: EOMI, no conjunctival erythema appreciated ENT: Moist Mucus Membranes 09:35 Chest/axilla: Normal chest wall appearance and motion. Cardiovascular: Regular rate and rhythm. No edema appreciated Respiratory: Normal respirations, no respiratory distress appreciated Abdomen/GI: Non distended, soft Back: Normal ROM Skin: General appearance color normal MS/ Extremity: Moves all extremities, no obvious deformities appreciated, no edema noted to the lower extremities Neuro: Awake and alert, normal gait Psych: Behavior is normal, Mood is normal, Patient is cooperative and pleasant 09:35 Neck: C-spine: vertebral tenderness, that is mild, appreciated at C5, C6 and C7. Vital Signs: 09:38 BP 169 / 80; Pulse 74; Resp 24 S; Temp 98.6(TE); Pulse Ox 100% on R/A; iw 10:55 BP 114 / 97; Pulse 72; Resp 18; Pulse Ox 97% on R/A; Pain 7/10; em 11:38 BP 114 / 64; Pulse 68; Resp 20; Pulse Ox 99% on R/A; em MDM: 09:35 Patient medically screened. [facility] 11:29 Data reviewed: vital signs, nurses notes. Counseling: I had a detailed discussion with nichole the patient and/or guardian regarding: the historical points, exam findings, and any diagnostic results supporting the discharge/admit diagnosis, the need for outpatient follow up, to return to the emergency department if symptoms worsen or persist or if there are any questions or concerns that arise at home. 05/12 09:37 Order name: CT Head C Spine; Complete Time: 10:53 [facility] Administered Medications: 09:38 Drug: Xopenex (3) 1.25 mg Route: Inhalation; em 10:28 Follow up: Response: No adverse reaction em 11:23 Drug: Tylenol 650 mg Route: PO; em 11:37 Follow up: Response: No adverse reaction em Disposition: 05/13 07:47 Co-signature as Attending Physician, Nick Aggarwal MD I agree with the assessment and kdr plan of care. Disposition: 05/12/19 11:29 Discharged to Home. Impression: Superficial injury of head. - Condition is Stable. - Discharge Instructions: Head Injury, Adult. - Medication Reconciliation Form, Thank You Letter, Antibiotic Education, Prescription Opioid Use form. - Follow up: Alvaor Sullivan MD; When: 2 - 3 days; Reason: Recheck today's complaints, Continuance of care, Re-evaluation by your physician. Signatures: Dispatcher [employer] [facility] Nick Aggarwal MD MD kdr Mickail, Joel, PA PA [facility] Francesco Manuel, VALVE AND REGULATOR REPAIRER VALVE AND REGULATOR REPAIRER em Kristen Jang, KALANI RN iw Corrections: (The following items were deleted from the chart) 05/12 11:31 11:28 IV Saline Lock ordered. [facility] 11:32 11:29 TROPONIN (EMERG DEPT USE ONLY)+C.LAB.BRZ ordered. [facility] 11:38 11:29 Chest Abdomen Pelvis W Con+CT.RAD.BRZ ordered. [facility] 11:41 11:29 05/12/2019 11:29 Discharged to Home. Impression: Superficial injury of head. em Condition is Stable. Forms are Medication Reconciliation Form, Thank You Letter, Antibiotic Education, Prescription Opioid Use. Follow up: Alvaro Sullivan; When: 2 - 3 days; Reason: Recheck today's complaints, Continuance of care, Re-evaluation by your physician. [facility]
--- NOTE | 2019-05-12 11:30 | ER ---
Nurse's Notes [facility] Name: Amy Francis Age: 88 yrs Sex: Female : 1930 Arrival Date: 05/12/2019 Time: 09:11 Bed 17 Private MD: Alvaro Sullivan Diagnosis: Superficial injury of head Presentation: 05/12 09:36 Presenting complaint: Child states: pt fell about 0400 this morning,was walking to bathroom and lost her balance, hit head on bathtub,bruising to front and back of head,denies LOC, pt currently on PLavix. Care prior to arrival: None. Mechanism of Injury: Fall from standing position. Trauma event details: Injury occurred in the [facility]. 09:36 Acuity: WENDY 3 iw 09:36 Method Of Arrival: Wheelchair iw 09:38 Transition of care: patient was not received from another setting of care. Onset of iw symptoms was May 12, 2019. Risk Assessment: Do you want to hurt yourself or someone else? Patient reports no desire to harm self or others. Initial Sepsis Screen: Does the patient meet any 2 criteria? No. Patient's initial sepsis screen is negative. Does the patient have a suspected source of infection? No. Patient's initial sepsis screen is negative. Historical: - Allergies: 09:41 No Known Allergies; iw - Home Meds: 09:41 alprazolam 0.25 mg Oral tab as needed [Active]; amlodipine 2.5 mg tab 1 tab once daily iw [Active]; Breo Ellipta 100-25 mcg/dose inhalation dsdv 1 puff once daily [Active]; gabapentin 300 mg Oral cap 1 cap 3 times per day [Active]; hydrochlorothiazide 12.5 mg Oral cap 1 cap once daily [Active]; irbesartan 300 mg Oral tab 1 tab once daily [Active]; methocarbamol 750 mg Oral tab 1 tab 3 times per day [Active]; pantoprazole 40 mg Oral TbEC 1 tab once daily [Active]; Plavix 75 mg Oral tab 1 tab once daily [Active]; ProAir HFA 90 mcg/actuation inhalation HFAA [Active]; rosuvastatin 10 mg Oral tab 1 tab once daily [Active]; tramadol 50 mg Oral tab as needed [Active]; - PMHx: 09:41 Asthma; Chronic pain; GERD; Hyperlipidemia; Hypertension; iw - PSHx: 09:41 Heart stents; Knee surgery; Cholecystectomy; Hernia repair; ; cataract; jen iw total knee replacement; - Immunization history: Last tetanus immunization:. - Social history:: Smoking status: Patient/guardian denies using tobacco. - Ebola Screening: : Patient negative for fever greater than or equal to 101.5 degrees Fahrenheit, and additional compatible Ebola Virus Disease symptoms Patient denies exposure to infectious person Patient denies travel to an Ebola-affected area in the 21 days before illness onset No symptoms or risks identified at this time. Screenin:35 Abuse screen: Denies threats or abuse. Nutritional screening: No deficits noted. em Tuberculosis screening: No symptoms or risk factors identified. Fall Risk Fall in past 12 months (25 points). Secondary diagnosis (15 points) impaired mobility, Mental Status- Overestimates/Forgets Limitations ([address] Fall Scale indicates High Risk Score (45 or more points). Side Rails Up X 2 Placed Close to Nursing Station Frequent Obs/Assessments Occuring Family Present and informed to notify staff if the need to leave the bedside. Assessment: 09:35 General: Appears in no apparent distress. comfortable, Behavior is calm, cooperative. em Pain: Complains of pain in headache Pain currently is 7 out of 10 on a pain scale. Pain began. Neuro: Level of Consciousness is awake, alert, obeys commands, Oriented to person, place, time, situation, Appropriate for age Reports headache Denies dizziness. Cardiovascular: Capillary refill < 3 seconds Patient's skin is warm and dry. Respiratory: Reports shortness of breath on exertion Airway is patent Respiratory effort is even, unlabored, Respiratory pattern is regular, symmetrical, Breath sounds with wheezes bilaterally. GI: Patient currently denies nausea, vomiting. Derm: Skin is intact, is healthy with good turgor, Skin is pink, warm \T\ dry. Bruising that is dark purple, on forehead. Musculoskeletal: Capillary refill < 3 seconds, Range of motion: intact in all extremities, Swelling present in forehead. 10:30 Reassessment: Patient appears in no apparent distress at this time. wheezing has em improved, provider notified. 11:25 Reassessment: Patient appears in no apparent distress at this time. Patient and/or em family updated on plan of care and expected duration. Pain level reassessed. Patient is alert, oriented x 3, equal unlabored respirations, skin warm/dry/pink. request something for headache, provider notified. Vital Signs: 09:38 BP 169 / 80; Pulse 74; Resp 24 S; Temp 98.6(TE); Pulse Ox 100% on R/A; iw 10:55 BP 114 / 97; Pulse 72; Resp 18; Pulse Ox 97% on R/A; Pain 7/10; em 11:38 BP 114 / 64; Pulse 68; Resp 20; Pulse Ox 99% on R/A; em ED Course: 09:11 Patient arrived in ED. mr 09:11 Alvaro Sullivan MD is Private Physician. mr 09:30 Samir Sprague PA is PHCP. jmm 09:30 Nick Aggarwal MD is Attending Physician. jmm 09:32 Francesco Manuel LVN is Primary Nurse. em 09:35 Patient has correct armband on for positive identification. Placed in gown. Call light em in reach. Side rails up X2. Adult w/ patient. Pulse ox on. NIBP on. 09:35 Patient maintains SpO2 saturation greater than 95% on room air. em 09:38 Triage completed. iw 09:38 Arm band placed on. iw 09:46 Radiology exam delayed due to pt having a breathing treatment \T\ this time. francesco to mw3 call when pts ready. 10:23 CT completed. Patient tolerated procedure well. Patient moved back from CT. bq 10:45 CT Head C Spine In Process Unspecified. EDMS 11:29 Alvaro Sullivan MD is Referral Physician. jmm 11:39 No provider procedures requiring assistance completed. Patient did not have IV access em during this emergency room visit. Administered Medications: 09:38 Drug: Xopenex (3) 1.25 mg Route: Inhalation; em 10:28 Follow up: Response: No adverse reaction em 11:23 Drug: Tylenol 650 mg Route: PO; em 11:37 Follow up: Response: No adverse reaction em Outcome: 11:29 Discharge ordered by MD. jmm 11:39 Discharged to home via wheelchair, with family. em 11:39 Condition: good 11:39 Discharge instructions given to patient, family, Instructed on discharge instructions, follow up and referral plans. Demonstrated understanding of instructions, follow-up care. 11:41 Patient left the ED. em Signatures: Dispatcher [employer] EDSamir Paz PA PA jmm Rivera, Mary mr Erniediana, Francesco Pollack, BATTERY VENT PLUG INSERTER BATTERY VENT PLUG INSERTER em Kristen Jang, KALANI RN iw Abi Fischer mw3 Corrections: (The following items were deleted from the chart) 09:42 09:38 Pulse 74bpm; Resp 24bpm; Spontaneous; Pulse Ox 100% RA; Temp 98.6F Temporal; iw iw
[2019-05-12 11:59] VITALS: TEMP 98.6
[2019-05-12 12:00] VITALS: BP 114/64; O2SAT 99
== END 2019-05-12 11:41 | disposition home or self-care (01) ==
LOC: ER 09:07
DX: S00.90XA Unspecified superficial injury of unspecified part of head, initial encounter (principal); W19.XXXA Unspecified fall, initial encounter; Y93.9 Activity, unspecified; Y92.9 Unspecified place or not applicable; I10 Essential (primary) hypertension; E78.5 Hyperlipidemia, unspecified; J45.909 Unspecified asthma, uncomplicated; Z79.01 Long term (current) use of anticoagulants
CPT/HCPCS: 70450; 72125; 99285